=== PATIENT | male | born 1950 | race Caucasian/White ===

== ENCOUNTER → 2018-08-18 11:48 | Outpatient (CLI) | payer MEDICARE, BC, SELFPAY ==
--- NOTE | 2018-08-18 | DI.MRI.S_ITS ---
PROCEDURE: MR LUMBAR SPINE WO CON INDICATIONS: LUMBAR FUSION LUMBAR PAIN TECHNIQUE: Noncontrast sagittal T1 spin echo and T2 fast echo, sagittal STIR, axial T1 and T2 fast spin echo through the lumbar spine. In cases with scoliosis, additional coronal T2 fast spin echo may be performed. COMPARISON: Outside Facility, RG, MRI L-SPINE W/O CONTRAST, 05/04/2015, 17:07. FINDINGS: Image quality: Suboptimal due to hardware artifact from spinal fixation hardware from the level of L2-S1 Alignment and Curvature: Grade 1 retrolisthesis of L1 on L2-L2 on L3. There is also trace residual retrolisthesis of L4 on L5. Bone Marrow: There is postsurgical change related to spinal fixation from the level of L2-S1. There is also posterior decompression from the level of L3-L5. No acute vertebral body compression fractures. Spinal Cord: Conus medullaris terminates at the L1-L2 level. Visualized cord demonstrates normal signal and size. Paraspinous Soft Tissues: No paravertebral masses. L1-L2: Minimal broad-based posterior disc bulge and bilateral facet disease. Minimal canal narrowing. Moderate left and right foraminal narrowing. This has progressed bilaterally since prior study. L2-L3: No definite residual canal narrowing. Mild bilateral foraminal stenoses, with no interval change. L3-L4: No definite residual canal narrowing. Moderate bilateral foraminal stenoses, probably unchanged. L4-L5: No high-grade residual canal stenosis. Mild left and moderate right foraminal narrowing, which appears improved on both sides. L5-S1: No definite residual canal stenosis. Mild left and severe right foraminal stenoses. Since the prior study, there is decrease in the right foraminal perineural fat, suggesting progression, or possibly interval postsurgical granulation tissue which can be further assessed with a contrast-enhanced study. IMPRESSION: Postsurgical changes from L2-S1. No residual canal stenosis. Slight decrease in the perineural fat within the right L5-S1 foramen since the prior study suggestive of progressive narrowing and or enhancing granulation tissue. This can be further assessed with a contrast-enhanced MRI as clinically warranted. Interval progression of moderate bilateral L1-L2 foraminal stenoses. Dictated by: Denton Dewey M.D. on 08/18/2018 at 13:52 Approved by: Denton Dewey M.D. on 08/18/2018 at 14:11
== END ==
DX: M54.5 Low back pain (principal); M48.061 Spinal stenosis, lumbar region without neurogenic claudication; M48.07 Spinal stenosis, lumbosacral region; Z98.1 Arthrodesis status
CPT/HCPCS: 72148

== ENCOUNTER → 2019-02-16 07:26 | Outpatient (CLI) | payer MEDICARE, BC, SELFPAY ==
--- NOTE | 2019-02-16 | DI.MRI.S_ITS ---
PROCEDURE: MR LUMBAR SPINE WO CON INDICATIONS: Spinal stenosis, lumbar region TECHNIQUE: Noncontrast sagittal T1 spin echo and T2 fast echo, sagittal STIR, axial T1 and T2 fast spin echo through the lumbar spine. In cases with scoliosis, additional coronal T2 fast spin echo may be performed. COMPARISON: [facility], MR, MR LUMBAR SPINE WO CON, 08/18/2018, 12:04. FINDINGS: Image quality: Susceptibility artifact from lumbar fusion hardware is again seen. Alignment and Curvature: There is normal bony alignment. Bone Marrow: Patient is status post extensive fusion of lumbar spine from L2-S1 levels. Posterior decompression at L3-L5 levels are also noted and unchanged. No gross marrow edema. No gross acute compression fracture. Spinal Cord: Conus medullaris terminates at the L1 to level. Visualized cord demonstrates normal signal and size. Paraspinous Soft Tissues: No paravertebral masses. L1-L2: Minimal broad-based disc bulge and bilateral facet arthrosis is seen, unchanged from prior study. There is minimal central canal stenosis and moderate bilateral neuroforaminal narrowing unchanged from prior study. L2-L3: A no significant canal stenosis. Bilateral facet arthrosis is seen with mild bilateral neuroforaminal narrowing unchanged from prior study. L3-L4: Post surgical changes are noted. No significant central canal stenosis. Bilateral facet arthrosis is seen. Moderate bilateral neural foramina narrowing is again seen and unchanged. L4-L5: Post surgical changes are noted. No significant central canal stenosis. Bilateral facet arthrosis is seen. Right worse than left bilateral neural foramina narrowing is again noted unchanged from prior study. L5-S1: No significant central canal stenosis. Bilateral facet arthrosis is again seen. There is mild left neuroforaminal narrowing and moderate right neural foraminal narrowing improved since previous study with interval increased amount of right foraminal perineural fat. IMPRESSION: 1. Status post extensive lumbar spine surgery from L2-S1 level, unchanged from prior study. No significant central canal stenosis is seen. 2. Interval increase in the amount of perineural fat within right L5-S1 foramen with now mild to moderate right-sided neural foraminal narrowing at this level, suggestive of decreasing inflammation/scar tissue in this area. 3. Rest of the study is not significantly changed from prior study. Dictated by: Jose Novak M.D. on 02/16/2019 at 13:57 Approved by: Jose Novak M.D. on 02/16/2019 at 14:03
== END ==
PROVIDERS: PCP Student in an Organized Health Care Education/Training Program; Visit Provider Neurological Surgery
DX: M47.816 Spondylosis without myelopathy or radiculopathy, lumbar region (principal); M47.817 Spondylosis without myelopathy or radiculopathy, lumbosacral region; M48.061 Spinal stenosis, lumbar region without neurogenic claudication; M48.07 Spinal stenosis, lumbosacral region
CPT/HCPCS: 72148

== ENCOUNTER → 2019-08-18 07:43 | Outpatient (CLI) | payer MEDICARE, BC, SELFPAY ==
--- NOTE | 2019-08-18 | DI.MRI.S_ITS ---
PROCEDURE: MR LUMBAR SPINE WO CON INDICATIONS: Other intervertebral disc displacement TECHNIQUE: Noncontrast sagittal T1 spin echo and T2 fast echo, sagittal STIR, axial T1 and T2 fast spin echo through the lumbar spine. In cases with scoliosis, additional coronal T2 fast spin echo may be performed. COMPARISON: [facility], MR, MR LUMBAR SPINE WO CON, 02/16/2019, 7:49. FINDINGS: Image quality: Excellent. Alignment and Curvature: No plain films are available for comparison, for numbering purposes. Thus, for the purposes of this examination, 5 lumbar type vertebral bodies will be presumed, as denoted on the montage panel. This should be confirmed and correlated with plain films, prior to any lumbar spinal intervention. There is mild, grade 1 retrolisthesis of L1 on L2, and L2 on L3, as before. Bone Marrow: Marrow is of normal overall signal. No acute vertebral body compression fractures. L2-S1 fusion has been performed with and posterior rods and pedicle screws, as before. Interbody devices at L2-L3, L4-L5, and L5-S1 are present. There is increased, severe reactive signal within the endplates adjacent to the L1-L2 intervertebral disc. Spinal Cord: Conus medullaris terminates at the lower L1 level. Visualized cord demonstrates normal signal and size. Paraspinous Soft Tissues: No paravertebral masses. Postsurgical STIR signal elevation within the posterior paraspinous soft tissues at L2-S1 is present, as before. L1-L2: Severe disc height loss and desiccation. Mild diffuse disc bulge with superimposed central disc extrusion which extends inferiorly in the anterior epidural space to the mid L2 level, and has increased in size. Disc extrusion currently measures roughly 24 mm craniocaudal by 23 mm transverse by 10 mm anteroposterior. Mild facet and ligament flavum hypertrophy. Mild epidural lipomatosis. There is increased, severe canal stenosis. There is increased, moderate subarticular foraminal stenosis bilaterally. L2-L3: Status post fusion. Mild facet and ligament flavum hypertrophy. Mild residual disc osteophyte complex. Mild canal stenosis. Mild bilateral foraminal stenosis. No change. L3-L4: Status post fusion. Severe disc height loss. Mild facet and ligament flavum hypertrophy. Mild canal stenosis. Mild bilateral foraminal stenosis. No change. L4-L5: Status post fusion. Interbody device placement. Mild residual disc bulge. Mild canal stenosis. Mild bilateral foraminal stenosis. No change. L5-S1: Status post fusion. Interbody device placement. Mild residual diffuse disc bulge with superimposed small right posterolateral protrusion. Mild facet hypertrophy bilaterally. Mild canal stenosis. Mild right greater than left foraminal stenosis. No change. IMPRESSION: 1. Postsurgical sequelae. No change in mild canal and foraminal stenoses at the fused levels. 2. L1-L2 disc extrusion, above the fused levels, contributing to increased, severe canal stenosis. 3. 5 lumbar type vertebral bodies were presumed for the current report. Plain films of the lumbar spine are recommended for confirmation, prior to any lumbar spinal intervention. Dictated by: Jenaro Salguero M.D. on 08/18/2019 at 9:30 Approved by: Jenaro Salguero M.D. on 08/18/2019 at 9:46
== END ==
PROVIDERS: PCP Student in an Organized Health Care Education/Training Program; Visit Provider Neurological Surgery
DX: M51.26 Other intervertebral disc displacement, lumbar region (principal); M51.27 Other intervertebral disc displacement, lumbosacral region; M48.061 Spinal stenosis, lumbar region without neurogenic claudication; M48.07 Spinal stenosis, lumbosacral region; Z98.1 Arthrodesis status
CPT/HCPCS: 72148

== ENCOUNTER → 2022-02-28 14:19 | Outpatient (CLI) | payer MEDICARE, BC, SELFPAY ==
[2022-02-28 15:37] LABS: INR 2.6 (0.9-1.3); Prothrombin Time 29.1 SECONDS (10.1-12.7)
== END ==
PROVIDERS: PCP Student in an Organized Health Care Education/Training Program; Referring Provider Internal Medicine Cardiovascular Disease; Visit Provider Internal Medicine Cardiovascular Disease
DX: I48.0 Paroxysmal atrial fibrillation (principal); I10 Essential (primary) hypertension
CPT/HCPCS: 36415; 85610